=== PATIENT | female | born 1950 | race Caucasian/White ===

== ENCOUNTER 2020-07-30 18:10 | Emergency (ER) | payer OTHER ==
[~2020-07-30] VITALS: Ht 160 cm; Wt 68.0 kg
[2020-07-30] MEDS ORDERED: MECLIZINE HCL 25 MG TAB PO ONE (19:30)
[2020-07-30 20:09] LABS: Hematocrit 33.9 % (36.0-46.0); Hemoglobin 11.3 g/dL (12.2-16.2); Mean Corpuscular Hemoglobin 33.7 pg (28.0-32.0); Mean Corpuscular Hgb Conc. 33.3 g/dL (32.0-36.0); Mean Corpuscular Volume 101.2 fL (80.0-100.0); Platelet Count (auto) 223 10^3/uL (140-450); Red Blood Cells 3.36 10^6/uL (4.0-5.20); Red Cell Distribution Width 14.6 % (11.8-14.3)
[2020-07-30 20:26] LABS: Albumin 3.7 g/dL (3.4-5.0); Calcium 8.2 mg/dL (8.5-10.1); Magnesium 2.3 mg/dL (1.6-2.6); Potassium 4.9 mmol/L (3.5-5.1)
[2020-07-30 20:29] LABS: BUN/Creatinine Ratio 14.7; Bilirubin, Total 0.6 mg/dL (0.2-1.0); Total Protein 6.4 g/dL (6.4-8.2)
[2020-07-30 20:41] LABS: White Blood Cell 63.2 10^3/uL (4.4-10.8)
[2020-07-30 20:43] LABS: Basophils % (manual) 0 (0.0-2.0); Myelocytes % 0; Promyelocytes % 0
[2020-07-30 22:08] LABS: INR 1.08 (0.9-1.15); Partial Thromboplastin Time 24.8 sec (23.0-31.2)
[2020-07-30 22:47] LABS: Band Neutrophils % (manual) 2; Blast Cells 1; Eosinophils % (manual) 1 (0-7); Lymphocytes % (manual) 71 (10.0-50.0); Metamyelocytes % 2; Monocytes % (manual) 3 (0-12); Reactive Lymphocytes 9
[2020-07-31 00:28] VITALS: BP 174/74
== END 2020-07-31 01:12 | disposition home or self-care (01) ==
LOC: ER 18:10
DX: H81.391 Other peripheral vertigo, right ear (principal); R53.1 Weakness; J44.9 Chronic obstructive pulmonary disease, unspecified; Z85.6 Personal history of leukemia
CPT/HCPCS: 36415; 70450; 71045; 80053; 83735; 84100; 84550; 85007; 85027; 85362; 85379; 85384; 85610; 85730; 93005; 99285; J8597

== ENCOUNTER 2020-11-19 11:27 | Inpatient (IN) | payer OTHER, MEDICAID ==
[~2020-11-19] VITALS: Ht 160 cm; Wt 69.9 kg
[2020-11-19 13:39] LABS: Hematocrit 39.7 % (36.0-46.0); Hemoglobin 13.9 g/dL (12.2-16.2); Mean Corpuscular Hemoglobin 33.8 pg (28.0-32.0); Mean Corpuscular Volume 96.5 fL (80.0-100.0); Red Blood Cells 4.11 10^6/uL (4.0-5.20); Red Cell Distribution Width 14.1 % (11.8-14.3); White Blood Cell 29.6 10^3/uL (4.4-10.8)
[2020-11-19 13:50] LABS: Basophils % (manual) 0 (0.0-2.0); Blast Cells 0; Eosinophils % (manual) 0 (0-7); Metamyelocytes % 0; Promyelocytes % 0
[2020-11-19 13:51] LABS: Albumin 3.4 g/dL (3.4-5.0); Anion Gap 8 (5-15); Blood Urea Nitrogen 21 mg/dL (7-18); Carbon Dioxide 22 mmol/L (21-32); Chloride 109 mmol/L (98-107); Glucose 114 mg/dL (74-106); Potassium 3.7 mmol/L (3.5-5.1); Sodium 139 mmol/L (136-145)
[2020-11-19 13:56] LABS: Alanine Aminotransferase 22 U/L (13-56); Alkaline Phosphatase 75 U/L (45-117); Aspartate Aminotransferase 13 U/L (15-37); BUN/Creatinine Ratio 33.9; Bilirubin, Total 0.5 mg/dL (0.2-1.0); GFR African American 122 mL/min; GFR Non-African American 101 mL/min
[2020-11-19] MEDS ORDERED: cefTRIAXone 1GM/50ML D5W 50 ML IV ONE (14:45)
[2020-11-19] MEDS ORDERED: SODIUM CHLORIDE 0.9% 1,000 ML IVB ONE (14:45)
[2020-11-19 15:23] LABS: Band Neutrophils % (manual) 3; Lymphocytes % (manual) 49 (10.0-50.0); Monocytes % (manual) 2 (0-12); Myelocytes % 6; Reactive Lymphocytes 4
[2020-11-19 16:19] LABS: Urine Bacteria NONE SEEN /hpf (None Seen); Urine Blood Negative /uL (Negative); Urine Hyaline Cast FEW /lpf (0 - 2); Urine Mucus FEW (None Seen); Urine Specific Gravity 1.027 (1.001-1.035); Urine WBC 9 /hpf (0 - 5)
[2020-11-19] MEDS ORDERED: NITROGLYCERIN 0.4 MG SL TAB SL PRN (16:30)
[2020-11-19] MEDS ORDERED: MORPHINE SULFATE INJECTION 2 MG/ML SYRG IV PRN ×2 (16:30→17:15)
[2020-11-19] MEDS ORDERED: ACETAMINOPHEN 500 MG TAB PO PRN (17:15)
[2020-11-19] MEDS ORDERED: HYDROcodone-ACET 5/325MG TAB PO PRN (17:15)
[2020-11-19] MEDS ORDERED: ONDANSETRON HCL 4 MG/2 ML VIAL IV PRN (17:15)
[2020-11-19] MEDS ORDERED: ALBUTEROL SULF 2.5 MG/0.5ML(0.5%) NEB SOLN NEB PRN (17:45)
[2020-11-19 17:48] VITALS: BP 145/88
[2020-11-19] MEDS: PIPERACILLIN-TAZOB 3.375GM 100 ML IV SCH (18:00)
[2020-11-19] MEDS: METOPROLOL TARTRATE 25 MG TAB PO SCH (22:04)
[2020-11-19 23:27] VITALS: BP 148/67
[2020-11-20] VITALS (12 sets, daily range): BP systolic 120–158; BP diastolic 67–127
[2020-11-20] MEDS: PIPERACILLIN-TAZOB 3.375GM 100 ML IV SCH ×4 (00:46→17:22)
[2020-11-20 06:19] LABS: INR 1.11 (0.9-1.15); Partial Thromboplastin Time 23.6 sec (23.0-31.2)
[2020-11-20 06:43] LABS: Potassium 3.8 mmol/L (3.5-5.1)
[2020-11-20] MEDS ORDERED: LORA0.5T20 PO ×2 (06:50)
[2020-11-20] MEDS ORDERED: ALBU108A5 IN (06:50)
[2020-11-20] MEDS ORDERED: FOLI1TAB6 PO (06:50)
[2020-11-20] MEDS ORDERED: PRAV20TA3 PO (06:50)
[2020-11-20] MEDS ORDERED: IBUP800T27 PO (06:50)
[2020-11-20] MEDS ORDERED: ACLI1AER2 IN (06:50)
[2020-11-20] MEDS ORDERED: FLUT1INH6 IN (06:50)
[2020-11-20] MEDS ORDERED: DOXY100C2 PO (06:50)
[2020-11-20] MEDS ORDERED: AMLO-489 PO (06:50)
[2020-11-20] MEDS ORDERED: ALEN70TA74 PO (06:50)
[2020-11-20] MEDS ORDERED: PRED10TA PO (06:50)
[2020-11-20] MEDS ORDERED: NYS5LQ MT (06:50)
[2020-11-20 06:59] LABS: Hematocrit 34.7 % (36.0-46.0); Hemoglobin 12.2 g/dL (12.2-16.2); Mean Corpuscular Hgb Conc. 35.1 g/dL (32.0-36.0); Mean Corpuscular Volume 96.7 fL (80.0-100.0); Red Blood Cells 3.59 10^6/uL (4.0-5.20); Red Cell Distribution Width 14.3 % (11.8-14.3); White Blood Cell 22.9 10^3/uL (4.4-10.8)
[2020-11-20 07:00] LABS: Albumin 2.9 g/dL (3.4-5.0); BUN/Creatinine Ratio 32.3; Bilirubin, Total 0.5 mg/dL (0.2-1.0); Calcium 7.9 mg/dL (8.5-10.1)
[2020-11-20 07:14] LABS: Basophils % (manual) 0 (0.0-2.0); Eosinophils % (manual) 0 (0-7); Metamyelocytes % 0; Promyelocytes % 0
[2020-11-20 08:12] LABS: Band Neutrophils % (manual) 1; Blast Cells 1; Lymphocytes % (manual) 45 (10.0-50.0); Monocytes % (manual) 6 (0-12); Myelocytes % 3; Reactive Lymphocytes 4
[2020-11-20] MEDS: IPRATROPIUM BROM 0.5 MG/2.5ML INH SOL NEB PRN (09:56)
[2020-11-20] MEDS: FAMOTIDINE 20 MG TAB PO SCH (10:00)
[2020-11-20] MEDS ORDERED: LIDOCAINE 2%HCL (LOCAL ANESTH.) INJ 20ML MDV ONE (12:48)
[2020-11-20] MEDS ORDERED: MIDAZOLAM HCL 2MG/2ML 2ml VIAL (1mg/ml) ONE (12:56)
[2020-11-20] MEDS ORDERED: fentaNYL CITRATE 100 MCG/2 ML VL ONE (12:57)
[2020-11-20] MEDS ORDERED: fentaNYL CITRATE 100 MCG/2 ML VL IV ONE (13:00)
[2020-11-20] MEDS ORDERED: MIDAZOLAM HCL 2MG/2ML 2ml VIAL (1mg/ml) IV ONE (13:00)
[2020-11-20] MEDS: METOPROLOL TARTRATE 25 MG TAB PO SCH ×2 (14:26→21:45)
[2020-11-20] MEDS ORDERED: LORazepam 0.5 MG TAB PO PRN (16:15)
[2020-11-20] MEDS: ALBUTEROL SULF 2.5 MG/0.5ML(0.5%) NEB SOLN NEB SCH (19:25)
[2020-11-21] MEDS: ALBUTEROL SULF 2.5 MG/0.5ML(0.5%) NEB SOLN NEB SCH ×3 (01:05→12:18)
[2020-11-21 05:00] VITALS: BP 135/82
[2020-11-21 05:55] LABS: Red Blood Cells 3.23 10^6/uL (4.0-5.20)
[2020-11-21 05:56] LABS: Hemoglobin 11.3 g/dL (12.2-16.2); Mean Corpuscular Hemoglobin 34.9 pg (28.0-32.0); Mean Corpuscular Hgb Conc. 36.3 g/dL (32.0-36.0); Mean Corpuscular Volume 96.2 fL (80.0-100.0); Red Cell Distribution Width 14.3 % (11.8-14.3); White Blood Cell 18.6 10^3/uL (4.4-10.8)
[2020-11-21 06:25] LABS: Potassium 3.6 mmol/L (3.5-5.1)
[2020-11-21 06:30] LABS: BUN/Creatinine Ratio 37.8; Calcium 7.7 mg/dL (8.5-10.1)
[2020-11-21 06:57] LABS: Basophils % (manual) 0 (0.0-2.0); Eosinophils % (manual) 0 (0-7); Monocytes % (manual) 0 (0-12); Reactive Lymphocytes 0
[2020-11-21 08:00] VITALS: BP 133/72
[2020-11-21 09:00] VITALS: BP 133/72
[2020-11-21 09:36] LABS: Band Neutrophils % (manual) 2; Blast Cells 1; Lymphocytes % (manual) 43 (10.0-50.0); Metamyelocytes % 2; Myelocytes % 1; Promyelocytes % 1
[2020-11-21] MEDS: FAMOTIDINE 20 MG TAB PO SCH (10:36)
[2020-11-21] MEDS: METOPROLOL TARTRATE 25 MG TAB PO SCH (10:39)
[2020-11-21] MEDS: IPRATROPIUM BROM 0.5 MG/2.5ML INH SOL NEB PRN (12:18)
[2020-11-21] MEDS ORDERED: IOHEXOL 350 MG/ML 100ML IJ ONE (12:33)
[2020-11-21 13:00] VITALS: BP 145/82
[2020-11-21] MEDS ORDERED: ALB5IS NEB (14:59)
[2020-11-21] MEDS ORDERED: IPR002IS NEB (14:59)
[2020-11-21] MEDS ORDERED: AMOX-277 PO (14:59)
[2020-11-21] MEDS ORDERED: MET25T PO (14:59)
[2020-11-21 16:31] VITALS: BP 143/85
== END 2020-11-21 17:30 | disposition home health service (06) | DRG 871 ==
LOC: ER 11:27 → TELE 16:27 → TELE-WESTW 23:15
PROVIDERS: ADMIT Hospitalist; ATTEND Hospitalist
PROC: 0BBC3ZX Excision of Right Upper Lung Lobe, Percutaneous Approach, Diagnostic (ICD-10-PCS; principal; 2020-11-20)
DX: A41.9 Sepsis, unspecified organism (principal); J96.01 Acute respiratory failure with hypoxia; J18.9 Pneumonia, unspecified organism; C91.10 Chronic lymphocytic leukemia of B-cell type not having achieved remission; C20 Malignant neoplasm of rectum; D64.9 Anemia, unspecified; E78.5 Hyperlipidemia, unspecified; Z20.822 Contact with and (suspected) exposure to COVID-19; E86.0 Dehydration; I10 Essential (primary) hypertension; R91.8 Other nonspecific abnormal finding of lung field; F41.9 Anxiety disorder, unspecified; J43.9 Emphysema, unspecified; Z79.899 Other long term (current) drug therapy; Z82.49 Family history of ischemic heart disease and other diseases of the circulatory system; Z82.5 Family history of asthma and other chronic lower respiratory diseases; Z85.048 Personal history of other malignant neoplasm of rectum, rectosigmoid junction, and anus; Z87.891 Personal history of nicotine dependence; Z90.49 Acquired absence of other specified parts of digestive tract; Z92.21 Personal history of antineoplastic chemotherapy; Z92.3 Personal history of irradiation; Z93.3 Colostomy status
CPT/HCPCS: 10022; 36415; 36600; 71045; 71250; 71275; 77012; 80048; 80053; 81001; 82805; 83605; 83735; 83880; 84484; 85007; 85027; 85049; 85610; 85730; 86606; 86635; 87040; 87081; 87426; 93005; 93306; 94640; 96361; 96365; G0378; J2250; J2543

== ENCOUNTER 2022-09-15 13:11 | Inpatient (IN) | payer OTHER, MEDICAID ==
[~2022-09-15] VITALS: Ht 160 cm; Wt 61.4 kg
[~2022-09-15 13:11] MED LIST: ACLI1AER2 IN; ALB5IS NEB; ALBU108A5 IN; ALEN70TA74 PO; AMOX-277 PO; FLUT1INH6 IN; FOLI1TAB6 PO; IPR002IS NEB; LORA0.5T20 PO; MET25T PO; NYS5LQ MT; PRAV20TA3 PO; PRED10TA PO
[2022-09-15 14:40] LABS: Hematocrit 41.2 % (36.0-46.0); Hemoglobin 13.2 g/dL (12.2-16.2); Mean Corpuscular Hemoglobin 29.6 pg (28.0-32.0); Mean Corpuscular Volume 92.5 fL (80.0-100.0); Red Blood Cells 4.45 10^6/uL (4.0-5.20); Red Cell Distribution Width 16.7 % (11.8-14.3); White Blood Cell 25.5 10^3/uL (4.4-10.8)
[2022-09-15 15:03] LABS: Albumin 3.2 g/dL (3.4-5.0); Calcium 8.7 mg/dL (8.5-10.1); Magnesium 1.8 mg/dL (1.6-2.6); Potassium 4.1 mmol/L (3.5-5.1)
[2022-09-15 15:07] LABS: BUN/Creatinine Ratio 18.3 (10.0-20.0); Bilirubin, Total 1.2 mg/dL (0.2-1.0); Total Protein 5.9 g/dL (6.4-8.2)
[2022-09-15 15:32] LABS: Basophils % (manual) 0 (0.0-2.0); Blast Cells 0; Metamyelocytes % 0; Myelocytes % 0; Promyelocytes % 0
[2022-09-15] MEDS ORDERED: cefTRIAXone 1GM/50ML D5W 50 ML IV ONE (16:15)
[2022-09-15] MEDS ORDERED: SODIUM CHLORIDE 0.9% 1,000 ML IV ONE (16:15)
[2022-09-15] MEDS ORDERED: levoFLOXacin 500MG 100 ML IV ONE (16:15)
[2022-09-15 16:31] LABS: Band Neutrophils % (manual) 11; Monocytes % (manual) 2 (0-12); Reactive Lymphocytes 11
[2022-09-15 16:32] LABS: Lymphocytes % (manual) 52 (10.0-50.0)
[2022-09-15 16:39] LABS: Eosinophils % (manual) 1 (0-7)
[2022-09-15] MEDS: InsuLIN REG 1unit/0.01ml Soln (100units/ml) SC SCH ×2 (17:00→21:32)
[2022-09-15] MEDS ORDERED: MORPHINE SULFATE INJ 2 MG/ml SYRG IV PRN ×2 (17:00)
[2022-09-15] MEDS ORDERED: MORPHINE SULFATE INJ 2 MG/ml SYRG IV ONE (17:00)
[2022-09-15] MEDS ORDERED: ONDANSETRON HCL 4 MG/2 ML VIAL IV ONE (17:00)
[2022-09-15] MEDS ORDERED: PROMETHAZINE HCL 25 MG/ML 1ML IV PRN (17:00)
[2022-09-15] MEDS ORDERED: PROMETHAZINE W/CODEINE 5 ML ORAL SYRUP PO PRN (17:00)
[2022-09-15] MEDS ORDERED: NITROGLYCERIN 0.4 MG SL TAB SL PRN (17:00)
[2022-09-15] MEDS ORDERED: DEXTROSE (50%) 50ML SYRG IV PRN (17:00)
[2022-09-15] MEDS: ACCU-CHEK COMFORT CURVE STRIP VI SCH ×2 (17:00→21:32)
[2022-09-15 17:09] VITALS: BP 133/58
[2022-09-15] MEDS: HYDROcodone-ACET 5/325MG TAB PO PRN (17:24)
[2022-09-15] MEDS: ALBUTEROL SULF 2.5 MG/0.5ML(0.5%) NEB SOLN NEB SCH ×2 (18:22→23:01)
[2022-09-15] MEDS: IPRATROPIUM BROM 0.5 MG/2.5ML INH SOL NEB PRN ×2 (18:22→23:01)
[2022-09-15] MEDS: PIPERACILLIN-TAZOB 3.375GM 100 ML IV SCH (20:20)
[2022-09-15] MEDS: PRAVASTATIN SODIUM 20 MG TAB PO SCH (22:00)
[2022-09-15] MEDS ORDERED: LORazepam 0.5 MG TAB PO SCH (22:00)
[2022-09-15] MEDS: METOPROLOL TARTRATE 25 MG TAB PO SCH (22:21)
[2022-09-15] MEDS: methylPREDNISolone SOD SUCC 40 MG/ML VL IV SCH (22:21)
[2022-09-15] MEDS ORDERED: IOHEXOL 350 MG/ML 100ML IJ ONE (22:23)
[2022-09-16] MEDS: HYDROcodone-ACET 5/325MG TAB PO PRN ×3 (01:49→19:55)
[2022-09-16 06:35] LABS: Anion Gap 8 (5-15); BUN/Creatinine Ratio 19.7 (10.0-20.0); Blood Urea Nitrogen 12 mg/dL (7-18); Calcium 8.2 mg/dL (8.5-10.1); Carbon Dioxide 21 mmol/L (21-32); Chloride 104 mmol/L (98-107); GFR African American 124 mL/min; GFR Non-African American 102 mL/min; Glucose 158 mg/dL (74-106); Sodium 133 mmol/L (136-145)
[2022-09-16] MEDS: ALBUTEROL SULF 2.5 MG/0.5ML(0.5%) NEB SOLN NEB SCH ×3 (06:50→18:43)
[2022-09-16] MEDS: ACCU-CHEK COMFORT CURVE STRIP VI SCH ×4 (07:08→21:15)
[2022-09-16 07:10] LABS: Hematocrit 35.2 % (36.0-46.0); Hemoglobin 11.5 g/dL (12.2-16.2); Mean Corpuscular Hemoglobin 29.9 pg (28.0-32.0); Mean Corpuscular Hgb Conc. 32.6 g/dL (32.0-36.0); Mean Corpuscular Volume 91.6 fL (80.0-100.0); Red Blood Cells 3.84 10^6/uL (4.0-5.20); Red Cell Distribution Width 16.9 % (11.8-14.3); White Blood Cell 17.8 10^3/uL (4.4-10.8)
[2022-09-16 07:16] LABS: Basophils % (manual) 0 (0.0-2.0); Blast Cells 0; Eosinophils % (manual) 0 (0-7); Myelocytes % 0; Promyelocytes % 0; Reactive Lymphocytes 0
[2022-09-16 08:45] LABS: Monocytes % (manual) 1 (0-12)
[2022-09-16 08:46] LABS: Band Neutrophils % (manual) 5; Lymphocytes % (manual) 63 (10.0-50.0); Metamyelocytes % 1
[2022-09-16] MEDS: ENOXAPARIN SOD 40 MG/0.4 ML SYRINGE SC SCH (10:00)
[2022-09-16] MEDS: PIPERACILLIN-TAZOB 3.375GM 100 ML IV SCH ×3 (10:00→17:14)
[2022-09-16] MEDS: methylPREDNISolone SOD SUCC 40 MG/ML VL IV SCH ×2 (10:43→21:14)
[2022-09-16] MEDS: FAMOTIDINE 20 MG TAB PO SCH (10:44)
[2022-09-16] MEDS: METOPROLOL TARTRATE 25 MG TAB PO SCH ×2 (10:56→21:23)
[2022-09-16] MEDS: InsuLIN REG 1unit/0.01ml Soln (100units/ml) SC SCH ×4 (11:30→21:24)
[2022-09-16] MEDS ORDERED: IOHEXOL 350 MG/ML 100ML IJ ONE (14:42)
[2022-09-16 17:07] VITALS: BP 158/75
[2022-09-16 17:38] VITALS: BP 128/80
[2022-09-16] MEDS: IPRATROPIUM BROM 0.5 MG/2.5ML INH SOL NEB PRN (18:43)
[2022-09-16] MEDS ORDERED: FLUT1AER7 IN (18:57)
[2022-09-16] MEDS: PRAVASTATIN SODIUM 20 MG TAB PO SCH (21:15)
[2022-09-16 22:00] VITALS: BP 147/69
[2022-09-17] MEDS: ALBUTEROL SULF 2.5 MG/0.5ML(0.5%) NEB SOLN NEB SCH ×4 (00:17→20:34)
[2022-09-17] MEDS: IPRATROPIUM BROM 0.5 MG/2.5ML INH SOL NEB PRN ×4 (00:17→20:34)
[2022-09-17] MEDS: PIPERACILLIN-TAZOB 3.375GM 100 ML IV SCH ×3 (01:31→17:36)
[2022-09-17] MEDS: HYDROcodone-ACET 5/325MG TAB PO PRN ×4 (01:38→22:30)
[2022-09-17 05:00] VITALS: BP 151/68
[2022-09-17] MEDS: methylPREDNISolone SOD SUCC 40 MG/ML VL IV SCH ×3 (05:34→21:25)
[2022-09-17] MEDS: ACCU-CHEK COMFORT CURVE STRIP VI SCH ×4 (06:26→21:44)
[2022-09-17] MEDS: InsuLIN REG 1unit/0.01ml Soln (100units/ml) SC SCH ×4 (06:30→21:45)
[2022-09-17 09:00] VITALS: BP 118/70
[2022-09-17] MEDS: FAMOTIDINE 20 MG TAB PO SCH (10:16)
[2022-09-17] MEDS: ENOXAPARIN SOD 40 MG/0.4 ML SYRINGE SC SCH (10:16)
[2022-09-17] MEDS: METOPROLOL TARTRATE 25 MG TAB PO SCH ×2 (10:20→21:38)
[2022-09-17] MEDS: IMBRUVICA 420 MG PO SCH (10:24)
[2022-09-17 13:00] VITALS: BP 168/76
[2022-09-17] MEDS: PRAVASTATIN SODIUM 20 MG TAB PO SCH (21:26)
[2022-09-17] MEDS ORDERED: POLYETHYLENE GLYCOL 17 GM PWDR PO PRN (21:45)
[2022-09-17 22:00] VITALS: BP 131/68
[2022-09-17] MEDS: DOCUSATE SOD 100 MG CAP PO SCH (22:26)
[2022-09-18] VITALS (7 sets, daily range): BP systolic 125–166; BP diastolic 65–81
[2022-09-18] MEDS: ALBUTEROL SULF 2.5 MG/0.5ML(0.5%) NEB SOLN NEB SCH ×4 (00:58→18:48)
[2022-09-18] MEDS: IPRATROPIUM BROM 0.5 MG/2.5ML INH SOL NEB PRN ×4 (00:58→18:48)
[2022-09-18] MEDS: PIPERACILLIN-TAZOB 3.375GM 100 ML IV SCH (02:10)
[2022-09-18] MEDS: HYDROcodone-ACET 5/325MG TAB PO PRN ×2 (05:11→15:15)
[2022-09-18] MEDS: methylPREDNISolone SOD SUCC 40 MG/ML VL IV SCH ×3 (06:23→21:31)
[2022-09-18] MEDS: ACCU-CHEK COMFORT CURVE STRIP VI SCH ×4 (06:27→21:44)
[2022-09-18] MEDS: InsuLIN REG 1unit/0.01ml Soln (100units/ml) SC SCH ×4 (06:28→21:47)
[2022-09-18] MEDS ORDERED: hydrALAZINE HCL 10 MG TAB PO PRN (06:30)
[2022-09-18] MEDS ORDERED: ALBU108A5 IN (09:25)
[2022-09-18] MEDS ORDERED: IPRA0.00 IN (09:25)
[2022-09-18] MEDS ORDERED: DOXY-332 PO (09:25)
[2022-09-18] MEDS ORDERED: BUDE0.5S IN (09:26)
[2022-09-18] MEDS ORDERED: DOXYCYCLINE 100MG/250ML 250 ML IV SCH (09:30)
[2022-09-18] MEDS: ENOXAPARIN SOD 40 MG/0.4 ML SYRINGE SC SCH (10:21)
[2022-09-18] MEDS: FAMOTIDINE 20 MG TAB PO SCH (10:21)
[2022-09-18] MEDS: DOCUSATE SOD 100 MG CAP PO SCH ×2 (10:21→21:32)
[2022-09-18] MEDS: METOPROLOL TARTRATE 25 MG TAB PO SCH ×2 (10:23→21:41)
[2022-09-18] MEDS: IMBRUVICA 420 MG PO SCH (10:24)
[2022-09-18] MEDS: PRAVASTATIN SODIUM 20 MG TAB PO SCH (21:32)
[2022-09-18] MEDS: DOXYCYCLINE 100 MG TAB/CAP PO SCH (21:32)
[2022-09-19] MEDS: ALBUTEROL SULF 2.5 MG/0.5ML(0.5%) NEB SOLN NEB SCH ×2 (00:12→06:13)
[2022-09-19] MEDS: IPRATROPIUM BROM 0.5 MG/2.5ML INH SOL NEB PRN ×2 (00:12→06:13)
[2022-09-19 05:00] VITALS: BP 153/64
[2022-09-19 05:13] LABS: Calcium 8.5 mg/dL (8.5-10.1); Potassium 3.9 mmol/L (3.5-5.1)
[2022-09-19 05:20] LABS: Hematocrit 33.6 % (36.0-46.0); Hemoglobin 10.9 g/dL (12.2-16.2); Mean Corpuscular Hemoglobin 29.5 pg (28.0-32.0); Mean Corpuscular Hgb Conc. 32.4 g/dL (32.0-36.0); Red Cell Distribution Width 16.9 % (11.8-14.3)
[2022-09-19 05:22] LABS: Basophils % (manual) 0 (0.0-2.0); Blast Cells 0; Eosinophils % (manual) 0 (0-7); Monocytes % (manual) 0 (0-12); Myelocytes % 0; Promyelocytes % 0; Reactive Lymphocytes 0
[2022-09-19] MEDS: methylPREDNISolone SOD SUCC 40 MG/ML VL IV SCH (05:42)
[2022-09-19] MEDS: InsuLIN REG 1unit/0.01ml Soln (100units/ml) SC SCH (06:35)
[2022-09-19] MEDS: ACCU-CHEK COMFORT CURVE STRIP VI SCH (06:36)
[2022-09-19 07:25] LABS: Band Neutrophils % (manual) 15; Lymphocytes % (manual) 72 (10.0-50.0); Metamyelocytes % 3
[2022-09-19 07:41] LABS: BUN/Creatinine Ratio 35.7 (10.0-20.0)
[2022-09-19 08:00] VITALS: BP 129/64
[2022-09-19 08:03] VITALS: BP 129/64
[2022-09-19] MEDS: DOCUSATE SOD 100 MG CAP PO SCH (09:25)
[2022-09-19] MEDS: IMBRUVICA 420 MG PO SCH (09:25)
[2022-09-19] MEDS: METOPROLOL TARTRATE 25 MG TAB PO SCH (09:26)
[2022-09-19] MEDS: DOXYCYCLINE 100 MG TAB/CAP PO SCH (09:27)
[2022-09-19] MEDS: FAMOTIDINE 20 MG TAB PO SCH (09:28)
[2022-09-19] MEDS: ENOXAPARIN SOD 40 MG/0.4 ML SYRINGE SC SCH (09:28)
== END 2022-09-19 11:02 | disposition home health service (06) | DRG 193 ==
LOC: EDUNIT# 13:11 → ER 13:11 → EDBD 13:11 → OVERFLOW 17:05 → WEST WING 09-16 16:20
PROVIDERS: ADMIT Hospitalist; ATTEND Hospitalist
DX: J18.1 Lobar pneumonia, unspecified organism (principal); J96.01 Acute respiratory failure with hypoxia; C91.10 Chronic lymphocytic leukemia of B-cell type not having achieved remission; J44.0 Chronic obstructive pulmonary disease with (acute) lower respiratory infection; Z21 Asymptomatic human immunodeficiency virus [HIV] infection status; E78.5 Hyperlipidemia, unspecified; I10 Essential (primary) hypertension; Z80.9 Family history of malignant neoplasm, unspecified; Z82.49 Family history of ischemic heart disease and other diseases of the circulatory system; Z85.048 Personal history of other malignant neoplasm of rectum, rectosigmoid junction, and anus; Z90.2 Acquired absence of lung [part of]; Z79.899 Other long term (current) drug therapy
CPT/HCPCS: 36415; 36600; 71045; 71275; 80048; 80053; 82805; 82962; 83605; 83735; 83880; 84484; 85007; 85027; 85049; 87040; 93005; 94640; 96365; 96367; 96375; 97110; 97116; 97163; 97530; G0378; J0696; J1815; J1956; J2543; J3490

== ENCOUNTER 2022-09-20 06:14 | Inpatient (IN) | payer OTHER, MEDICAID ==
[~2022-09-20] VITALS: Ht 160 cm; Wt 60.9 kg
[~2022-09-20 06:14] MED LIST changes: -ACLI1AER2 IN; -ALEN70TA74 PO; -AMOX-277 PO; +BUDE0.5S IN; +DOXY-448 PO; +FLUT1AER7 IN; -FLUT1INH6 IN; +FOLI-119 PO; -FOLI1TAB6 PO; -IPR002IS NEB; +IPRA0.00 IN; +LORA-1121 PO; -LORA0.5T20 PO; -NYS5LQ MT; -PRED10TA PO
[2022-09-20] MEDS ORDERED: MAGNESIUM SULFATE 1GM/100ML 100 ML IV ONE (06:45)
[2022-09-20] MEDS ORDERED: methylPREDNISolone SOD SUCC 125 MG/2 ML VL IV ONE ×2 (06:45→07:45)
[2022-09-20] MEDS ORDERED: IPRATROPIUM BROM 0.5 MG/2.5ML INH SOL NEB ONE (06:45)
[2022-09-20] MEDS ORDERED: ALBUTEROL SULF 2.5 MG/0.5ML(0.5%) NEB SOLN NEB ONE (06:45)
[2022-09-20 07:14] LABS: INR 1.18 (0.9-1.15)
[2022-09-20 07:41] LABS: Hematocrit 37.9 % (36.0-46.0); Hemoglobin 12.3 g/dL (12.2-16.2); Mean Corpuscular Hgb Conc. 32.5 g/dL (32.0-36.0); Mean Corpuscular Volume 89.1 fL (80.0-100.0); Red Blood Cells 4.25 10^6/uL (4.0-5.20); Red Cell Distribution Width 17.8 % (11.8-14.3); White Blood Cell 21.8 10^3/uL (4.4-10.8)
[2022-09-20] MEDS ORDERED: AZITHROMYCIN 500MG/ 250ML 250 ML IV ONE (07:45)
[2022-09-20] MEDS ORDERED: cefTRIAXone 1GM/50ML D5W 50 ML IV ONE (07:45)
[2022-09-20 07:46] LABS: Basophils % (manual) 0 (0.0-2.0); Blast Cells 0; Eosinophils % (manual) 0 (0-7); Metamyelocytes % 0; Myelocytes % 0; Promyelocytes % 0; Reactive Lymphocytes 0
[2022-09-20 07:49] LABS: Albumin 2.9 g/dL (3.4-5.0); Calcium 8.4 mg/dL (8.5-10.1); Potassium 3.8 mmol/L (3.5-5.1)
[2022-09-20 07:55] LABS: BUN/Creatinine Ratio 29.5 (10.0-20.0); Total Protein 5.5 g/dL (6.4-8.2)
[2022-09-20 08:20] LABS: Band Neutrophils % (manual) 8; Lymphocytes % (manual) 52 (10.0-50.0); Monocytes % (manual) 9 (0-12)
[2022-09-20] MEDS ORDERED: ALBUTEROL SULF 2.5 MG/0.5ML(0.5%) NEB SOLN NEB PRN (10:00)
[2022-09-20] MEDS ORDERED: HYDROcodone-ACET 5/325MG TAB PO PRN (10:30)
[2022-09-20] MEDS ORDERED: MORPHINE SULFATE INJ 2 MG/ml SYRG IV PRN (10:30)
[2022-09-20] MEDS ORDERED: ACETAMINOPHEN 325 MG TAB PO PRN (10:30)
[2022-09-20] MEDS ORDERED: NITROGLYCERIN 0.4 MG SL TAB SL PRN (10:30)
[2022-09-20] MEDS ORDERED: DOCUSATE SOD 100 MG CAP PO PRN (10:30)
[2022-09-20] MEDS ORDERED: ONDANSETRON HCL 4 MG/2 ML VIAL IV PRN (10:30)
[2022-09-20] MEDS ORDERED: SODIUM CHLORIDE 0.9% 1,000 ML IV ONE (10:45)
[2022-09-20] MEDS: LORazepam 0.5 MG TAB PO SCH ×2 (11:15→22:38)
[2022-09-20] MEDS: SODIUM CHLORIDE 0.9% 1,000 ML IV SCH (11:15)
[2022-09-20] MEDS: METOPROLOL TARTRATE 25 MG TAB PO SCH ×2 (11:15→22:39)
[2022-09-20 13:01] LABS: Urine Bacteria NONE SEEN /hpf (None Seen); Urine Blood TRACE /uL (Negative); Urine Mucus FEW (None Seen); Urine WBC 14 /hpf (0 - 5)
[2022-09-20 13:22] VITALS: BP 138/63
[2022-09-20] MEDS: methylPREDNISolone SOD SUCC 40 MG/ML VL IV SCH ×2 (14:48→22:51)
[2022-09-20] MEDS: MEROPENEM 1GM IVPB 100 ML IV SCH ×2 (14:49→22:50)
[2022-09-20 22:00] VITALS: BP 143/72
[2022-09-20] MEDS: IPRATROPIUM BROM 0.5 MG/2.5ML INH SOL NEB SCH (22:19)
[2022-09-20] MEDS: ALBUTEROL SULF 2.5 MG/0.5ML(0.5%) NEB SOLN NEB SCH (22:19)
[2022-09-20] MEDS: ATORVASTATIN 20 MG TAB PO SCH (22:40)
[2022-09-20] MEDS ORDERED: ALBUTEROL SULF 2.5 MG/0.5ML(0.5%) NEB SOLN NEB SCH (23:00)
[2022-09-20 23:22] VITALS: BP 145/73
[2022-09-21] MEDS: ALBUTEROL SULF 2.5 MG/0.5ML(0.5%) NEB SOLN NEB SCH ×5 (01:19→22:08)
[2022-09-21] MEDS: IPRATROPIUM BROM 0.5 MG/2.5ML INH SOL NEB SCH ×5 (01:19→22:08)
[2022-09-21] MEDS: SODIUM CHLORIDE 0.9% 1,000 ML IV SCH (03:10)
[2022-09-21 05:00] VITALS: BP 153/68
[2022-09-21 06:15] LABS: Hemoglobin 9.8 g/dL (12.2-16.2)
[2022-09-21 06:16] LABS: Hematocrit 29.8 % (36.0-46.0); Mean Corpuscular Hemoglobin 29.9 pg (28.0-32.0); Mean Corpuscular Volume 90.7 fL (80.0-100.0); Red Blood Cells 3.28 10^6/uL (4.0-5.20); Red Cell Distribution Width 17.3 % (11.8-14.3)
[2022-09-21 06:32] LABS: Basophils % (manual) 0 (0.0-2.0); Blast Cells 0; Eosinophils % (manual) 0 (0-7); Promyelocytes % 0; Reactive Lymphocytes 0
[2022-09-21 06:33] LABS: Calcium 7.9 mg/dL (8.5-10.1); Potassium 3.5 mmol/L (3.5-5.1)
[2022-09-21 06:36] LABS: BUN/Creatinine Ratio 58.8 (10.0-20.0)
[2022-09-21] MEDS: MEROPENEM 1GM IVPB 100 ML IV SCH ×3 (06:50→22:25)
[2022-09-21] MEDS: methylPREDNISolone SOD SUCC 40 MG/ML VL IV SCH ×3 (06:50→22:25)
[2022-09-21 08:20] VITALS: BP 153/60
[2022-09-21 09:18] LABS: Band Neutrophils % (manual) 21; Lymphocytes % (manual) 51 (10.0-50.0); Metamyelocytes % 5; Monocytes % (manual) 2 (0-12); Myelocytes % 3
[2022-09-21] MEDS: FOLIC ACID 1 MG TAB PO SCH (10:00)
[2022-09-21] MEDS: LORazepam 0.5 MG TAB PO SCH ×2 (10:01→22:25)
[2022-09-21] MEDS: METOPROLOL TARTRATE 25 MG TAB PO SCH ×3 (10:01→22:26)
[2022-09-21] MEDS ORDERED: METOPROLOL TARTRATE 25 MG TAB PO SCH (10:30)
[2022-09-21] MEDS ORDERED: methylPREDNISolone SOD SUCC 40 MG/ML VL IV ONE (10:30)
[2022-09-21] MEDS ORDERED: FUROSEMIDE 40 MG/4 ML VIAL IV ONE (10:30)
[2022-09-21] MEDS ORDERED: ALBUTEROL SULF 2.5 MG/0.5ML(0.5%) NEB SOLN NEB ONE (10:30)
[2022-09-21 12:20] VITALS: BP 153/70
[2022-09-21] MEDS ORDERED: METO-158 PO (13:07)
[2022-09-21] MEDS: ACETYLCYSTEINE 20%(200MG/ML) SOL 4ML NEB SCH ×2 (14:17→22:00)
[2022-09-21 16:20] VITALS: BP 145/71
[2022-09-21] MEDS ORDERED: POTASSIUM CHL 20 Meq TABLET PO ONE (19:45)
[2022-09-21 22:00] VITALS: BP 148/53
[2022-09-21] MEDS: FUROSEMIDE 20 MG TAB PO SCH (22:24)
[2022-09-21] MEDS: ATORVASTATIN 20 MG TAB PO SCH (22:25)
[2022-09-22] MEDS: IPRATROPIUM BROM 0.5 MG/2.5ML INH SOL NEB SCH ×6 (01:55→21:19)
[2022-09-22] MEDS: ALBUTEROL SULF 2.5 MG/0.5ML(0.5%) NEB SOLN NEB SCH ×6 (01:55→21:18)
[2022-09-22 05:00] VITALS: BP 141/60
[2022-09-22] MEDS: methylPREDNISolone SOD SUCC 40 MG/ML VL IV SCH ×3 (05:57→22:34)
[2022-09-22] MEDS: MEROPENEM 1GM IVPB 100 ML IV SCH ×3 (05:57→22:35)
[2022-09-22] MEDS: ACETYLCYSTEINE 20%(200MG/ML) SOL 4ML NEB SCH ×3 (06:00→21:20)
[2022-09-22 06:50] LABS: Calcium 8.3 mg/dL (8.5-10.1); Potassium 3.1 mmol/L (3.5-5.1)
[2022-09-22 06:52] LABS: Hematocrit 32.7 % (36.0-46.0); Hemoglobin 10.5 g/dL (12.2-16.2); Mean Corpuscular Hemoglobin 29.2 pg (28.0-32.0); Mean Corpuscular Hgb Conc. 32.1 g/dL (32.0-36.0); Mean Corpuscular Volume 90.9 fL (80.0-100.0); Red Cell Distribution Width 17.5 % (11.8-14.3); White Blood Cell 13.3 10^3/uL (4.4-10.8)
[2022-09-22 07:31] LABS: Basophils % (manual) 0 (0.0-2.0); Blast Cells 0; Eosinophils % (manual) 0 (0-7); Monocytes % (manual) 0 (0-12); Promyelocytes % 0; Reactive Lymphocytes 0
[2022-09-22 08:44] VITALS: BP 158/74
[2022-09-22] MEDS: LORazepam 0.5 MG TAB PO SCH ×2 (08:50→19:50)
[2022-09-22] MEDS: FUROSEMIDE 20 MG TAB PO SCH (08:50)
[2022-09-22] MEDS: FOLIC ACID 1 MG TAB PO SCH (08:50)
[2022-09-22] MEDS: METOPROLOL TARTRATE 25 MG TAB PO SCH ×2 (08:52→19:50)
[2022-09-22 08:56] LABS: Band Neutrophils % (manual) 1; Lymphocytes % (manual) 71 (10.0-50.0); Metamyelocytes % 4; Myelocytes % 5
[2022-09-22] MEDS ORDERED: POTASSIUM CHL 10 Meq TABLET PO SCH (10:00)
[2022-09-22] MEDS: POTASSIUM CHL 20 Meq TABLET PO SCH (10:26)
[2022-09-22] MEDS: POTASSIUM CHL 20MEQ/100ML 100 ML IV SCH ×2 (10:28→12:33)
[2022-09-22] MEDS ORDERED: FUROSEMIDE 20 MG TAB PO ONE (11:15)
[2022-09-22 13:00] VITALS: BP 145/69
[2022-09-22 17:00] VITALS: BP 144/67
[2022-09-22 22:00] VITALS: BP 139/70
[2022-09-22] MEDS: ATORVASTATIN 20 MG TAB PO SCH (22:33)
[2022-09-23] VITALS (8 sets, daily range): BP systolic 126–154; BP diastolic 52–79
[2022-09-23] MEDS: ALBUTEROL SULF 2.5 MG/0.5ML(0.5%) NEB SOLN NEB SCH ×6 (02:14→22:57)
[2022-09-23] MEDS: IPRATROPIUM BROM 0.5 MG/2.5ML INH SOL NEB SCH ×6 (02:14→22:57)
[2022-09-23] MEDS: methylPREDNISolone SOD SUCC 40 MG/ML VL IV SCH ×4 (06:04→23:30)
[2022-09-23] MEDS: MEROPENEM 1GM IVPB 100 ML IV SCH ×3 (06:06→21:33)
[2022-09-23 06:19] LABS: Hematocrit 30.9 % (36.0-46.0); Mean Corpuscular Hemoglobin 29.1 pg (28.0-32.0); Mean Corpuscular Hgb Conc. 32.5 g/dL (32.0-36.0); Mean Corpuscular Volume 89.5 fL (80.0-100.0); Red Blood Cells 3.45 10^6/uL (4.0-5.20); Red Cell Distribution Width 17.2 % (11.8-14.3); White Blood Cell 11.5 10^3/uL (4.4-10.8)
[2022-09-23 06:21] LABS: BUN/Creatinine Ratio 48.9 (10.0-20.0); Calcium 8.5 mg/dL (8.5-10.1); Potassium 3.2 mmol/L (3.5-5.1)
[2022-09-23] MEDS: ACETYLCYSTEINE 20%(200MG/ML) SOL 4ML NEB SCH ×3 (06:45→22:57)
[2022-09-23 06:58] LABS: Basophils % (manual) 0 (0.0-2.0); Blast Cells 0; Eosinophils % (manual) 0 (0-7); Promyelocytes % 0; Reactive Lymphocytes 0
[2022-09-23] MEDS: FOLIC ACID 1 MG TAB PO SCH (09:28)
[2022-09-23] MEDS: LORazepam 0.5 MG TAB PO SCH ×2 (09:28→21:32)
[2022-09-23] MEDS: POTASSIUM CHL 20 Meq TABLET PO SCH (09:29)
[2022-09-23] MEDS: FUROSEMIDE 40 MG TAB PO SCH (09:30)
[2022-09-23] MEDS: METOPROLOL TARTRATE 25 MG TAB PO SCH ×2 (09:30→21:36)
[2022-09-23] MEDS: POTASSIUM CHL 20MEQ/100ML 100 ML IV SCH ×2 (13:07→18:34)
[2022-09-23 13:52] LABS: Band Neutrophils % (manual) 34; Lymphocytes % (manual) 28 (10.0-50.0); Metamyelocytes % 5; Monocytes % (manual) 4 (0-12); Myelocytes % 2
[2022-09-23] MEDS: ATORVASTATIN 20 MG TAB PO SCH (21:32)
[2022-09-24] VITALS (8 sets, daily range): BP systolic 132–164; BP diastolic 52–74
[2022-09-24] MEDS: IPRATROPIUM BROM 0.5 MG/2.5ML INH SOL NEB SCH ×6 (02:56→21:55)
[2022-09-24] MEDS: ALBUTEROL SULF 2.5 MG/0.5ML(0.5%) NEB SOLN NEB SCH ×6 (02:56→21:55)
[2022-09-24] MEDS: methylPREDNISolone SOD SUCC 40 MG/ML VL IV SCH ×3 (05:13→17:31)
[2022-09-24] MEDS: MEROPENEM 1GM IVPB 100 ML IV SCH ×3 (05:13→21:45)
[2022-09-24] MEDS: ACETYLCYSTEINE 20%(200MG/ML) SOL 4ML NEB SCH (05:59)
[2022-09-24] MEDS: POTASSIUM CHL 20 Meq TABLET PO SCH (09:37)
[2022-09-24] MEDS: FOLIC ACID 1 MG TAB PO SCH (09:38)
[2022-09-24] MEDS: LORazepam 0.5 MG TAB PO SCH ×2 (09:39→21:48)
[2022-09-24] MEDS: METOPROLOL TARTRATE 25 MG TAB PO SCH ×2 (09:39→21:48)
[2022-09-24] MEDS: FUROSEMIDE 40 MG TAB PO SCH (09:39)
[2022-09-24] MEDS ORDERED: guaiFENesin 200 MG/10 ML UD PO PRN (10:00)
[2022-09-24 11:41] LABS: Calcium 8.4 mg/dL (8.5-10.1); Magnesium 2.5 mg/dL (1.6-2.6); Potassium 3.2 mmol/L (3.5-5.1)
[2022-09-24] MEDS: ATORVASTATIN 20 MG TAB PO SCH (21:48)
[2022-09-24] MEDS: BUDESONIDE (INHALATION) 0.5 MG/2 ML NEB NEB SCH (21:55)
[2022-09-25] VITALS (7 sets, daily range): BP systolic 114–142; BP diastolic 63–94
[2022-09-25] MEDS: methylPREDNISolone SOD SUCC 40 MG/ML VL IV SCH ×4 (00:16→18:00)
[2022-09-25] MEDS: IPRATROPIUM BROM 0.5 MG/2.5ML INH SOL NEB SCH ×6 (02:06→22:27)
[2022-09-25] MEDS: ALBUTEROL SULF 2.5 MG/0.5ML(0.5%) NEB SOLN NEB SCH ×6 (02:06→22:28)
[2022-09-25] MEDS: MEROPENEM 1GM IVPB 100 ML IV SCH ×3 (06:00→21:50)
[2022-09-25] MEDS: BUDESONIDE (INHALATION) 0.5 MG/2 ML NEB NEB SCH ×2 (06:02→19:12)
[2022-09-25] MEDS ORDERED: VANCOMYCIN PER PHARMACY 0 MG IV SCH (06:45)
[2022-09-25] MEDS ORDERED: VANCOMYCIN 1GM/250ML 250 ML IV ONE (07:30)
[2022-09-25] MEDS: POTASSIUM CHL 20 Meq TABLET PO SCH (09:52)
[2022-09-25] MEDS: LORazepam 0.5 MG TAB PO SCH ×2 (09:54→21:51)
[2022-09-25] MEDS: FOLIC ACID 1 MG TAB PO SCH (09:54)
[2022-09-25] MEDS: FUROSEMIDE 40 MG TAB PO SCH (09:54)
[2022-09-25] MEDS: METOPROLOL TARTRATE 25 MG TAB PO SCH ×2 (09:55→21:51)
[2022-09-25] MEDS: AZITHROMYCIN 500MG/ 250ML 250 ML IV SCH (11:10)
[2022-09-25] MEDS: VANCOMYCIN 1GM/250ML 250 ML IV SCH (17:51)
[2022-09-25] MEDS: ATORVASTATIN 20 MG TAB PO SCH (21:51)
[2022-09-26] VITALS (7 sets, daily range): BP systolic 102–153; BP diastolic 66–75
[2022-09-26] MEDS: methylPREDNISolone SOD SUCC 40 MG/ML VL IV SCH ×4 (00:21→18:44)
[2022-09-26] MEDS: IPRATROPIUM BROM 0.5 MG/2.5ML INH SOL NEB SCH ×6 (02:13→21:13)
[2022-09-26] MEDS: ALBUTEROL SULF 2.5 MG/0.5ML(0.5%) NEB SOLN NEB SCH ×6 (02:14→21:13)
[2022-09-26] MEDS: VANCOMYCIN 1GM/250ML 250 ML IV SCH ×2 (03:56→14:09)
[2022-09-26] MEDS: MEROPENEM 1GM IVPB 100 ML IV SCH ×3 (05:47→21:30)
[2022-09-26] MEDS: BUDESONIDE (INHALATION) 0.5 MG/2 ML NEB NEB SCH ×2 (06:17→18:45)
[2022-09-26] MEDS: AZITHROMYCIN 500MG/ 250ML 250 ML IV SCH (09:30)
[2022-09-26] MEDS: FOLIC ACID 1 MG TAB PO SCH (09:31)
[2022-09-26] MEDS: LORazepam 0.5 MG TAB PO SCH ×2 (09:31→21:18)
[2022-09-26] MEDS: METOPROLOL TARTRATE 25 MG TAB PO SCH ×2 (09:31→21:29)
[2022-09-26] MEDS: FUROSEMIDE 40 MG TAB PO SCH (09:32)
[2022-09-26] MEDS: POTASSIUM CHL 20 Meq TABLET PO SCH (09:42)
[2022-09-26] MEDS ORDERED: POTASSIUM EFFERVESENT TAB 25 MEQ PO ONE (13:30)
[2022-09-26] MEDS: POTASSIUM CHL 20MEQ/100ML 100 ML IV SCH ×2 (14:10→16:27)
[2022-09-26] MEDS: ATORVASTATIN 20 MG TAB PO SCH (21:19)
[2022-09-27] MEDS: VANCOMYCIN 1GM/250ML 250 ML IV SCH ×3 (00:30→21:34)
[2022-09-27] MEDS: ALBUTEROL SULF 2.5 MG/0.5ML(0.5%) NEB SOLN NEB SCH ×6 (01:46→21:41)
[2022-09-27] MEDS: IPRATROPIUM BROM 0.5 MG/2.5ML INH SOL NEB SCH ×6 (01:46→21:41)
[2022-09-27 05:00] VITALS: BP 126/74
[2022-09-27] MEDS: methylPREDNISolone SOD SUCC 40 MG/ML VL IV SCH ×3 (05:16→06:17)
[2022-09-27] MEDS: MEROPENEM 1GM IVPB 100 ML IV SCH ×2 (05:19→13:43)
[2022-09-27] MEDS ORDERED: methylPREDNISolone SOD SUCC 125 MG/2 ML VL ONE (06:09)
[2022-09-27 08:00] VITALS: BP 116/75
[2022-09-27] MEDS: AZITHROMYCIN 500MG/ 250ML 250 ML IV SCH (10:11)
[2022-09-27] MEDS: FOLIC ACID 1 MG TAB PO SCH (10:13)
[2022-09-27] MEDS: LORazepam 0.5 MG TAB PO SCH ×2 (10:14→22:00)
[2022-09-27] MEDS: FUROSEMIDE 40 MG TAB PO SCH (10:14)
[2022-09-27] MEDS: METOPROLOL TARTRATE 25 MG TAB PO SCH ×2 (10:14→22:00)
[2022-09-27] MEDS: POTASSIUM CHL 20 Meq TABLET PO SCH (10:14)
[2022-09-27] MEDS: BUDESONIDE (INHALATION) 0.5 MG/2 ML NEB NEB SCH ×2 (10:26→18:31)
[2022-09-27 12:00] VITALS: BP 120/75
[2022-09-27] MEDS ORDERED: methylPREDNISolone SOD SUCC 40 MG/ML VL IV ONE (13:45)
[2022-09-27] MEDS: methylPREDNISolone SOD SUCC 125 MG/2 ML VL IV SCH ×2 (14:05→21:26)
[2022-09-27 16:00] VITALS: BP 139/77
[2022-09-27] MEDS ORDERED: methylPREDNISolone SOD SUCC 40 MG/ML VL IV SCH (18:00)
[2022-09-27] MEDS ORDERED: LORazepam 2MG/ML-1ML VIAL IV PRN (21:15)
[2022-09-27] MEDS: METOPROLOL TARTRATE 1MG/1ML-5ML VIAL IV PRN (21:29)
[2022-09-27 22:00] VITALS: BP 160/88
[2022-09-27] MEDS: ATORVASTATIN 20 MG TAB PO SCH (22:00)
[2022-09-28] MEDS: MEROPENEM 1GM IVPB 100 ML IV SCH ×3 (01:19→14:00)
[2022-09-28] MEDS: LORazepam 2MG/ML-1ML VIAL IV PRN ×4 (01:45→20:25)
[2022-09-28] MEDS: IPRATROPIUM BROM 0.5 MG/2.5ML INH SOL NEB SCH ×7 (02:11→22:00)
[2022-09-28] MEDS: ALBUTEROL SULF 2.5 MG/0.5ML(0.5%) NEB SOLN NEB SCH ×6 (02:11→22:00)
[2022-09-28] MEDS: methylPREDNISolone SOD SUCC 125 MG/2 ML VL IV SCH ×4 (02:24→20:23)
[2022-09-28] MEDS: MORPHINE SULFATE INJ 2 MG/ml SYRG IV PRN ×4 (02:42→17:43)
[2022-09-28] MEDS: METOPROLOL TARTRATE 1MG/1ML-5ML VIAL IV PRN ×3 (03:07→13:47)
[2022-09-28 05:00] VITALS: BP 148/70
[2022-09-28 06:18] LABS: Anion Gap 9 (5-15); BUN/Creatinine Ratio 37.8 (10.0-20.0); Blood Urea Nitrogen 37 mg/dL (7-18); Calcium 8.5 mg/dL (8.5-10.1); Carbon Dioxide 26 mmol/L (21-32); Chloride 107 mmol/L (98-107); GFR African American 72 mL/min; GFR Non-African American 59 mL/min; Glucose 213 mg/dL (74-106); Potassium 3.5 mmol/L (3.5-5.1); Sodium 142 mmol/L (136-145)
[2022-09-28] MEDS: VANCOMYCIN 1GM/250ML 250 ML IV SCH ×2 (06:27→18:19)
[2022-09-28 08:56] LABS: Hematocrit 31.3 % (36.0-46.0); Hemoglobin 10.1 g/dL (12.2-16.2); Mean Corpuscular Hemoglobin 28.5 pg (28.0-32.0); Mean Corpuscular Hgb Conc. 32.1 g/dL (32.0-36.0); Mean Corpuscular Volume 88.8 fL (80.0-100.0); Red Blood Cells 3.53 10^6/uL (4.0-5.20); Red Cell Distribution Width 17.7 % (11.8-14.3)
[2022-09-28 09:00] VITALS: BP 159/77
[2022-09-28 09:02] LABS: Basophils % (manual) 0 (0.0-2.0); Blast Cells 0; Eosinophils % (manual) 0 (0-7); Promyelocytes % 0; Reactive Lymphocytes 0; White Blood Cell 33.3 10^3/uL (4.4-10.8)
[2022-09-28] MEDS: METOPROLOL TARTRATE 25 MG TAB PO SCH ×2 (10:00→10:05)
[2022-09-28] MEDS: FOLIC ACID 1 MG TAB PO SCH ×2 (10:00→10:05)
[2022-09-28] MEDS: BUDESONIDE (INHALATION) 0.5 MG/2 ML NEB NEB SCH ×2 (10:00→22:00)
[2022-09-28] MEDS: POTASSIUM CHL 20 Meq TABLET PO SCH ×2 (10:00→10:05)
[2022-09-28] MEDS: AZITHROMYCIN 500MG/ 250ML 250 ML IV SCH (10:05)
[2022-09-28] MEDS: FUROSEMIDE 40 MG TAB PO SCH (10:05)
[2022-09-28] MEDS: FUROSEMIDE 40 MG/4 ML VIAL IV SCH ×2 (11:03→18:19)
[2022-09-28] MEDS ORDERED: hydrALAZINE HCL 20 MG/ML VL IV PRN (12:15)
[2022-09-28 13:00] VITALS: BP 156/76
[2022-09-28 13:31] LABS: Band Neutrophils % (manual) 4; Lymphocytes % (manual) 19 (10.0-50.0); Metamyelocytes % 2; Monocytes % (manual) 2 (0-12); Myelocytes % 2
[2022-09-28 17:00] VITALS: BP 132/72
[2022-09-28] MEDS ORDERED: METOPROLOL TARTRATE 1MG/1ML-5ML VIAL IV PRN (17:00)
[2022-09-28] MEDS ORDERED: LORazepam 2MG/ML-1ML VIAL ONE (20:09)
[2022-09-28 22:27] VITALS: BP 139/58
[2022-09-29] MEDS: methylPREDNISolone SOD SUCC 125 MG/2 ML VL IV SCH ×2 (02:36→09:16)
[2022-09-29] MEDS: LORazepam 2MG/ML-1ML VIAL IV PRN ×2 (02:37→06:16)
[2022-09-29] MEDS: MORPHINE SULFATE INJ 2 MG/ml SYRG IV PRN (03:09)
[2022-09-29 05:09] VITALS: BP 121/62
[2022-09-29 05:35] VITALS: BP 121/62
[2022-09-29] MEDS: ALBUTEROL SULF 2.5 MG/0.5ML(0.5%) NEB SOLN NEB SCH ×2 (06:00→06:54)
[2022-09-29] MEDS: IPRATROPIUM BROM 0.5 MG/2.5ML INH SOL NEB SCH ×2 (06:00→06:54)
[2022-09-29] MEDS: BUDESONIDE (INHALATION) 0.5 MG/2 ML NEB NEB SCH (06:54)
[2022-09-29 08:00] VITALS: BP 79/17
[2022-09-29] MEDS ORDERED: MORPHINE SULFATE INJ 2 MG/ml SYRG IV PRN (09:00)
== END 2022-09-29 05:30 | DRG 189 ==
LOC: EDBD 06:14 → ER 06:14 → TELE 10:22 → TELE-CENTR 21:26
PROVIDERS: ADMIT Internal Medicine; ATTEND Internal Medicine
PROC: 5A09357 Assistance with Respiratory Ventilation, Less than 24 Consecutive Hours, Continuous Positive Airway Pressure (ICD-10-PCS; principal; 2022-09-27)
DX: J96.21 Acute and chronic respiratory failure with hypoxia (principal); J44.1 Chronic obstructive pulmonary disease with (acute) exacerbation; J90 Pleural effusion, not elsewhere classified; E44.0 Moderate protein-calorie malnutrition; J44.0 Chronic obstructive pulmonary disease with (acute) lower respiratory infection; I10 Essential (primary) hypertension; Z20.822 Contact with and (suspected) exposure to COVID-19; Z66 Do not resuscitate; E87.6 Hypokalemia; E78.00 Pure hypercholesterolemia, unspecified; Z51.5 Encounter for palliative care; I49.3 Ventricular premature depolarization; Z53.29 Procedure and treatment not carried out because of patient's decision for other reasons; D72.829 Elevated white blood cell count, unspecified; R00.0 Tachycardia, unspecified; Z82.49 Family history of ischemic heart disease and other diseases of the circulatory system; Z80.0 Family history of malignant neoplasm of digestive organs; Z82.5 Family history of asthma and other chronic lower respiratory diseases; Z87.891 Personal history of nicotine dependence; Z85.048 Personal history of other malignant neoplasm of rectum, rectosigmoid junction, and anus; Z92.21 Personal history of antineoplastic chemotherapy; Z85.118 Personal history of other malignant neoplasm of bronchus and lung; Z90.2 Acquired absence of lung [part of]; Z68.23 Body mass index [BMI] 23.0-23.9, adult; Z92.3 Personal history of irradiation; Z93.3 Colostomy status; T38.0X5A Adverse effect of glucocorticoids and synthetic analogues, initial encounter; Y92.89 Other specified places as the place of occurrence of the external cause; D69.6 Thrombocytopenia, unspecified
CPT/HCPCS: 36415; 36600; 51702; 71045; 71275; 80048; 80053; 80202; 81001; 82805; 83605; 83735; 83880; 84484; 85007; 85027; 85379; 85610; 85730; 86606; 86612; 86635; 86698; 87040; 87070; 87081; 87086; 87205; 87426; 93005; 93306; 93970; 94640; 94660; 94668; 96365; 96366; 96367; 96375; 99291; G0378; J0696; J2185; J3480